=== PATIENT | female | born 1995 | race Caucasian/White ===

== ENCOUNTER 2017-06-16 16:18 | Emergency (ER) | payer MEDICAID ==
[~2017-06-16] VITALS: Ht 154.9 cm; Wt 113.4 kg
[~2017-06-16 16:18] MED LIST: AMOXICILLIN500 MG PO; BACTRIM DS 8001 TA1 PO; IBU-6600 MG PO; MOTRIN800 MG PO; NAPROSYN500 MG PO; NKHM; PREDNISONE20 MG PO; PYRIDIUM200 MG PO; ZOFRAN ODT4 MG SL; ZOVIRAX800 MG PO
[2017-06-16 16:57] LABS: BASO % 0.2 % (0.0-1.0); EOS # 0.1 10*3/uL (0.0-0.4); EOS % 1.2 % (1.0-4.0); HEMATOCRIT 45.3 % (37.0-47.0); HEMOGLOBIN 14.7 g/dl (12.0-16.0); LYMPH # 1.6 10*3/uL (1.3-4.4); LYMPH % 16.1 % (27.0-41.0); MEAN CELL VOLUME 79.8 fl (81.0-99.0); MEAN CORPUSCULAR HGB 25.9 pg (27.0-31.0); MEAN CORPUSCULAR HGB CONC 32.5 g/dl (33.0-37.0); MEAN PLATELET VOLUME 11.2 fl (9.6-12.3); MONO # 0.6 10*3/uL (0.1-1.0); MONO % 6.3 % (3.0-9.0); NEUT # 7.6 10*3/uL (2.3-7.9); NEUT % 75.8 % (47.0-73.0); PLATELET COUNT AUTOMATED 381 10*3/uL (130-400); RED BLOOD COUNT 5.68 10*6/uL (4.10-5.10); RED CELL DISTRI WIDTH 14.7 % (0-14.5)
[2017-06-16 17:15] LABS: ALBUMIN 3.6 gm/dl (3.1-4.5); ALKALINE PHOSPHATASE 92 U/L (45-117); BILIRUBIN, TOTAL 0.4 mg/dl (0.2-1.0); BUN 8 mg/dl (7-24); CARBON DIOXIDE 23 mmol/L (21-32); CHLORIDE 104 mmol/L (98-107); EST GLOM FILT AFRICAN AMERICAN > 60 ml/min; GLUCOSE 108 mg/dL (65-99); POTASSIUM 3.8 mmol/L (3.5-5.1); SGOT/AST 23 IU/L (3-35); SGPT/ALT 30 U/L (12-78); SODIUM 136 mmol/L (136-145); TOTAL PROTEIN 8.3 gm/dL (6.4-8.2)
[2017-06-16 17:22] LABS: BILIRUBIN NEGATIVE (NEGATIVE); BLOOD TRACE-INTACT (NEGATIVE); CLARITY SL CLOUDY (CLEAR); COLOR YELLOW (YELLOW); GLUCOSE NEGATIVE (NEGATIVE); KETONE NEGATIVE (NEGATIVE); LEUKO ESTERASE TRACE (NEGATIVE); NITRITE NEGATIVE (NEGATIVE); PROTEIN NEGATIVE (NEGATIVE)
[2017-06-16 17:35] LABS: BACTERIA 2+; EPITHELIAL CELLS 41-50; URINE REFLEX COMMENT YES (NO)
[2017-06-16] MEDS ORDERED: AVPAK AZITHROM250 MG PO (17:42)
[2017-06-16] MEDS ORDERED: ROBITUSSIN AC 110 ML PO (17:42)
[2017-06-16] MEDS ORDERED: PREDNISONE10 MG PO (17:42)
[2017-06-16 17:45] VITALS: BP 144/90
== END 2017-06-16 21:24 | disposition home or self-care (01) ==
LOC: ED 16:18
PROVIDERS: Nurse Practitioner Family
DX: J06.9 Acute upper respiratory infection, unspecified (principal); R03.0 Elevated blood-pressure reading, without diagnosis of hypertension; F17.200 Nicotine dependence, unspecified, uncomplicated

== ENCOUNTER 2017-11-24 22:35 | Emergency (ER) | payer MEDICAID ==
[~2017-11-24] VITALS: Ht 160 cm; Wt 108.9 kg
[~2017-11-24 22:35] MED LIST changes: +AVPAK AZITHROM250 MG PO; +PREDNISONE10 MG PO; +ROBITUSSIN AC 110 ML PO
[2017-11-24 22:42] VITALS: BP 129/66
[2017-11-24 23:22] LABS: BASO % 0.3 % (0.0-1.0); EOS # 0.3 10*3/uL (0.0-0.4); EOS % 2.3 % (1.0-4.0); HEMOGLOBIN 13.3 g/dl (12.0-16.0); LYMPH # 3.8 10*3/uL (1.3-4.4); LYMPH % 32.8 % (27.0-41.0); MEAN CELL VOLUME 81.8 fl (81.0-99.0); MEAN CORPUSCULAR HGB 27.2 pg (27.0-31.0); MEAN CORPUSCULAR HGB CONC 33.3 g/dl (33.0-37.0); MEAN PLATELET VOLUME 11.2 fl (9.6-12.3); MONO # 0.7 10*3/uL (0.1-1.0); MONO % 6.4 % (3.0-9.0); NEUT # 6.7 10*3/uL (2.3-7.9); NEUT % 57.9 % (47.0-73.0); PLATELET COUNT AUTOMATED 373 10*3/uL (130-400); RED BLOOD COUNT 4.89 10*6/uL (4.10-5.10); RED CELL DISTRI WIDTH 14.4 % (0-14.5); WHITE BLOOD COUNT 11.5 10*3/uL (4.8-10.8)
[2017-11-24 23:37] LABS: ALBUMIN 3.3 gm/dl (3.1-4.5); ALKALINE PHOSPHATASE 86 U/L (45-117); BUN 9 mg/dl (7-24); CHLORIDE 107 mmol/L (98-107); CREATININE 0.74 mg/dL (0.55-1.02); POTASSIUM 3.9 mmol/L (3.5-5.1); SGOT/AST 16 IU/L (3-35); SGPT/ALT 25 U/L (12-78); SODIUM 141 mmol/L (136-145); TOTAL PROTEIN 7.2 gm/dL (6.4-8.2)
[2017-11-25] MEDS ORDERED: NAPROSYN500 MG PO (01:42)
== END 2017-11-25 01:45 | disposition home or self-care (01) ==
LOC: ED 22:35
PROVIDERS: Physician Assistant
DX: R07.89 Other chest pain (principal); F17.200 Nicotine dependence, unspecified, uncomplicated; Z79.899 Other long term (current) drug therapy

== ENCOUNTER 2018-03-23 06:25 | Emergency (ER) | payer OTHER ==
[~2018-03-23] VITALS: Ht 160 cm; Wt 113.4 kg
[2018-03-23 06:25] VITALS: BP 140/72
== END 2018-03-23 07:38 | disposition home or self-care (01) ==
LOC: ED 06:25
DX: S93.492A Sprain of other ligament of left ankle, initial encounter (principal); S80.212A Abrasion, left knee, initial encounter; F17.200 Nicotine dependence, unspecified, uncomplicated; W01.0XXA Fall on same level from slipping, tripping and stumbling without subsequent striking against object, initial encounter; Y93.89 Activity, other specified; Y92.89 Other specified places as the place of occurrence of the external cause; Y99.8 Other external cause status

== ENCOUNTER 2018-04-18 16:55 | Emergency (ER) | payer OTHER ==
[~2018-04-18] VITALS: Wt 113.4 kg
[2018-04-18 16:58] VITALS: BP 129/76
== END 2018-04-18 17:54 | disposition home or self-care (01) ==
LOC: ED 16:55
DX: Z32.02 Encounter for pregnancy test, result negative (principal)

== ENCOUNTER 2018-08-09 22:20 | Emergency (ER) | payer OTHER ==
[~2018-08-09] VITALS: Ht 162.5 cm; Wt 99.8 kg
[2018-08-09 22:23] VITALS: BP 129/88
[2018-08-09] MEDS ORDERED: AMOXICILLIN500 M2 PO (22:27)
== END 2018-08-09 22:37 | disposition home or self-care (01) ==
LOC: ED 22:20
DX: J02.9 Acute pharyngitis, unspecified (principal)

== ENCOUNTER 2018-09-25 00:50 | Emergency (ER) | payer OTHER ==
[~2018-09-25] VITALS: Ht 162.5 cm; Wt 108.9 kg
[~2018-09-25 00:50] MED LIST changes: +AMOXICILLIN500 M2 PO
[2018-09-25 00:52] VITALS: BP 146/65
== END 2018-09-25 01:16 | disposition home or self-care (01) ==
LOC: ED 00:50
DX: M25.511 Pain in right shoulder (principal); Z79.2 Long term (current) use of antibiotics

== ENCOUNTER 2020-10-10 11:32 | Emergency (ER) | payer OTHER ==
[~2020-10-10 11:32] MED LIST changes: +MEDROL DOSEPAK4 MG PO; +ROBAXIN500 M1 PO
[2020-10-10 11:39] VITALS: BP 128/67
[2020-10-10] MEDS ORDERED: ZOFRAN4 MG PO (13:33)
== END 2020-10-10 13:41 | disposition home or self-care (01) ==
LOC: ED 11:32
DX: R11.2 Nausea with vomiting, unspecified (principal); R19.7 Diarrhea, unspecified; R51.9 Headache, unspecified; F90.9 Attention-deficit hyperactivity disorder, unspecified type; Z79.899 Other long term (current) drug therapy; Z79.2 Long term (current) use of antibiotics

== ENCOUNTER 2021-03-27 19:23 | Emergency (ER) | payer OTHER ==
[~2021-03-27] VITALS: Ht 162.5 cm; Wt 117.9 kg
[~2021-03-27 19:23] MED LIST changes: +ZOFRAN4 MG PO
[2021-03-27 19:25] VITALS: BP 100/70
[2021-03-27] MEDS ORDERED: VIBRAMYCIN100 MG PO (19:36)
== END 2021-03-27 19:44 | disposition home or self-care (01) ==
LOC: ED 19:23
DX: R21 Rash and other nonspecific skin eruption (principal); Z79.899 Other long term (current) drug therapy; Z79.2 Long term (current) use of antibiotics

== ENCOUNTER 2021-04-13 01:52 | Emergency (ER) | payer OTHER ==
[~2021-04-13] VITALS: Ht 162.5 cm; Wt 117.9 kg
[~2021-04-13 01:52] MED LIST changes: +VIBRAMYCIN100 MG PO
[2021-04-13 01:59] VITALS: BP 109/67
[2021-04-13] MEDS ORDERED: METHOCARBAMOL750 M1 PO (02:12)
[2021-04-13] MEDS ORDERED: NAPROSYN500 MG PO (02:12)
== END 2021-04-13 02:50 | disposition home or self-care (01) ==
LOC: ED 01:52
DX: S29.012A Strain of muscle and tendon of back wall of thorax, initial encounter (principal); E66.9 Obesity, unspecified; X58.XXXA Exposure to other specified factors, initial encounter; Y93.89 Activity, other specified; Y92.89 Other specified places as the place of occurrence of the external cause; Y99.8 Other external cause status

== ENCOUNTER 2021-05-17 23:31 | Emergency (ER) | payer OTHER ==
[~2021-05-17 23:31] MED LIST changes: +METHOCARBAMOL750 M1 PO
[2021-05-18 00:04] VITALS: BP 129/64
[2021-05-18] MEDS ORDERED: AUGMENTIN 875875 MG PO (00:06)
== END 2021-05-18 00:12 | disposition home or self-care (01) ==
LOC: ED 23:31
DX: H66.91 Otitis media, unspecified, right ear (principal); Z79.899 Other long term (current) drug therapy

== ENCOUNTER 2021-10-12 16:40 | Emergency (ER) | payer OTHER ==
[~2021-10-12] VITALS: Wt 127.9 kg
[~2021-10-12 16:40] MED LIST changes: +AUGMENTIN 875875 MG PO
[2021-10-12 16:48] VITALS: BP 129/69
[2021-10-12 18:25] LABS: BILIRUBIN 1+ (Negative); BLOOD 3+ (Negative); CLARITY Turbid (Clear); COLOR Red (Yellow); GLUCOSE Negative (Negative); KETONE Negative (Negative); LEUKO ESTERASE 2+ (Negative); NITRITE Positive (Negative); PH 5.5 (4.5-8.0); SPECIFIC GRAVITY >= 1.030 (1.001-1.030); UROBILINOGEN 0.2 E.U./dl (0.0-1.0)
[2021-10-12 18:38] LABS: RBC TNTC rbc/hpf (0-2); WBC TNTC wbc/hpf (0-5)
[2021-10-12 18:39] LABS: BACTERIA 1+; EPITHELIAL CELLS 0-2
[2021-10-12] MEDS ORDERED: SEPTDS PO (18:56)
== END 2021-10-12 19:11 | disposition home or self-care (01) ==
LOC: ED 16:40
PROVIDERS: Physician Assistant
DX: N39.0 Urinary tract infection, site not specified (principal); N94.6 Dysmenorrhea, unspecified

== ENCOUNTER 2022-12-08 11:28 | Emergency (ER) | payer OTHER ==
[~2022-12-08] VITALS: Ht 162.5 cm; Wt 98.4 kg
[~2022-12-08 11:28] MED LIST changes: +SEPTDS PO
[2022-12-08 11:37] VITALS: BP 113/84
[2022-12-08] MEDS ORDERED: PREDNISONE50 MG PO (11:48)
== END 2022-12-08 12:19 | disposition home or self-care (01) ==
LOC: ED 11:28
DX: R07.89 Other chest pain (principal)

== ENCOUNTER 2024-04-13 21:12 | Emergency (ER) | payer OTHER ==
[~2024-04-13] VITALS: Ht 160 cm; Wt 93.0 kg
[~2024-04-13 21:12] MED LIST changes: +PREDNISONE50 MG PO
[2024-04-13 21:28] VITALS: BP 133/73
[2024-04-13 22:01] LABS: BASO % 0.5 % (0.0-1.0); EOS # 0.1 10*3/uL (0.0-0.4); EOS % 1.1 % (1.0-4.0); HEMATOCRIT 38.3 % (37.0-47.0); LYMPH # 2.7 10*3/uL (1.3-4.4); LYMPH % 31.5 % (27.0-41.0); MEAN CELL VOLUME 86.8 fl (81.0-99.0); MEAN CORPUSCULAR HGB 27.9 pg (27.0-31.0); MEAN CORPUSCULAR HGB CONC 32.1 g/dl (33.0-37.0); MONO # 0.5 10*3/uL (0.1-1.0); MONO % 6.2 % (3.0-9.0); NEUT # 5.2 10*3/uL (2.3-7.9); NEUT % 60.3 % (47.0-73.0); PLATELET COUNT AUTOMATED 400 10*3/uL (130-400); RED BLOOD COUNT 4.41 10*6/uL (4.10-5.10); RED CELL DISTRI WIDTH 14.3 % (0-14.5); WHITE BLOOD COUNT 8.6 10*3/uL (4.8-10.8)
[2024-04-13 22:01] LABS: BILIRUBIN Negative (Negative); BLOOD 3+ (Negative); CLARITY Cloudy (Clear); COLOR Orange (Yellow); GLUCOSE Negative (Negative); KETONE Negative (Negative); LEUKO ESTERASE 1+ (Negative); NITRITE Negative (Negative); PH 6.5 (4.5-8.0); SPECIFIC GRAVITY 1.015 (1.001-1.030)
[2024-04-13 22:08] LABS: URINE AMPHETAMINES Negative (1000ng/ml); URINE BARBITURATES Negative (200ng/ml); URINE BENZODIAZEPINES Negative (200ng/ml); URINE CANNABINOIDS (THC) Positive (50ng/ml); URINE COCAINE Negative (300ng/ml); URINE METHADONE Negative (300ng/ml); URINE OPIATES Negative (300ng/ml); URINE PHENCYCLIDINE Negative (25ng/ml)
[2024-04-13 22:11] LABS: BACTERIA 2+; RBC TNTC rbc/hpf (0-2)
[2024-04-13 22:23] LABS: ALKALINE PHOSPHATASE 66 U/L (46-116); BUN 7 mg/dl (9-23); CHLORIDE 107 mmol/L (98-107); POTASSIUM 3.6 mmol/L (3.4-5.1); SGPT/ALT 17 U/L (5-49); TOTAL PROTEIN 7.2 gm/dL (6.0-8.0)
[2024-04-13] MEDS ORDERED: AMOX-CLAV 875-1 EACH PO (23:25)
== END 2024-04-13 23:13 | disposition left against medical advice (07) ==
LOC: ED 21:12
PROVIDERS: Internal Medicine
DX: Z32.01 Encounter for pregnancy test, result positive (principal); F90.9 Attention-deficit hyperactivity disorder, unspecified type; Z53.29 Procedure and treatment not carried out because of patient's decision for other reasons; Z87.891 Personal history of nicotine dependence

== ENCOUNTER 2024-04-14 11:08 | Emergency (ER) | payer OTHER ==
[~2024-04-14] VITALS: Ht 162.5 cm; Wt 93.0 kg
[~2024-04-14 11:08] MED LIST changes: +AMOX-CLAV 875-1 EACH PO
[2024-04-14 11:19] VITALS: BP 123/80
== END 2024-04-14 13:20 | disposition left against medical advice (07) ==
LOC: ED 11:08
DX: O20.0 Threatened abortion (principal); F90.9 Attention-deficit hyperactivity disorder, unspecified type; Z3A.01 Less than 8 weeks gestation of pregnancy